=== PATIENT | female | born 1960 | race Caucasian/White ===

== ENCOUNTER 2017-05-27 17:54 | Emergency (ER) | payer SELFPAY ==
[~2017-05-27] VITALS: Ht 162.6 cm; Wt 59.9 kg
[2017-05-27 18:02] VITALS: Ht 162.6 cm; Wt 59.9 kg
[2017-05-27 20:22] LABS: BASOPHIL % 0.5 % (0-2); PLATELET COUNT 244 x10^3mcL (130-400)
[2017-05-27 20:29] LABS: CALCIUM 8.7 mg/dL (8.5-10.1); CARBON DIOXIDE 27.5 mmol/L (21-32); CHLORIDE SERUM 107 mmol/L (98-107); CREATININE SERUM 0.6 mg/dL (0.6-1.0); GFR1 > 60 mL/min; GLUCOSE SERUM 93 mg/dL (74-106); POTASSIUM SERUM 3.5 mmol/L (3.5-5.1); SODIUM SERUM 138 mmol/L (136-145)
[2017-05-27 20:34] LABS: ALBUMIN 4.1 g/dL (3.4-5.0); ALKALINE PHOSPHATASE 96 U/L (46-116); ALT/SGPT 29 U/L (14-59); AST/SGOT 15 U/L (15-37); BILIRUBIN TOTAL 0.6 mg/dL (0.20-1.00); TOTAL PROTEIN, SERUM 7.2 g/dL (6.4-8.2)
[2017-05-27 21:00] VITALS: BP 99/58
== END 2017-05-27 21:25 | disposition home or self-care (01) ==
LOC: ED 17:54
PROVIDERS: Emergency Medicine
DX: R07.89 Other chest pain (principal); F41.9 Anxiety disorder, unspecified; R11.0 Nausea; R20.2 Paresthesia of skin
CPT/HCPCS: 83880; Q0092

== ENCOUNTER 2020-01-22 22:19 | Emergency (ER) | payer OTHER ==
[~2020-01-22] VITALS: Ht 162.6 cm; Wt 62.6 kg
[2020-01-23 01:29] LABS: PLATELET COUNT 247 x10^3mcL (130-400); RED CELL DISTRIBUTION WIDTH 13.2 % (11.5-14.5)
[2020-01-23 01:30] LABS: BASOPHIL % 2.1 % (0-2)
[2020-01-23 01:57] LABS: CALCIUM 9.2 mg/dL (8.5-10.1); CHLORIDE SERUM 105 mmol/L (98-107); CREATININE SERUM 0.7 mg/dL (0.6-1.0); GFR1 > 60 mL/min; GLUCOSE SERUM 102 mg/dL (74-106); POTASSIUM SERUM 3.9 mmol/L (3.5-5.1); SODIUM SERUM 140 mmol/L (136-145)
[2020-01-23 02:01] LABS: ALKALINE PHOSPHATASE 107 U/L (46-116); ALT/SGPT 20 U/L (14-59); AMYLASE 112 U/L (25-115); AST/SGOT 10 U/L (15-37); BILIRUBIN TOTAL 0.3 mg/dL (0.20-1.00); LIPASE 207 IU/L (73-393)
[2020-01-23 03:00] LABS: UA SPECIFIC GRAVITY 1.015 (1.005-1.035); microscopic required? YES; urine erythrocyte NEGATIVE (NEGATIVE)
[2020-01-23 04:39] VITALS: BP 123/73
== END 2020-01-23 04:39 | disposition home or self-care (01) ==
LOC: ED 22:19
PROVIDERS: Emergency Medicine
DX: K29.70 Gastritis, unspecified, without bleeding (principal)